=== PATIENT | male | born 1950 | race Caucasian/White ===

== ENCOUNTER 2019-05-30 15:50 | Inpatient (IN) | payer MEDICARE ==
[~2019-05-30] VITALS: Ht 170.2 cm; Wt 91.0 kg
[2019-05-30 18:13] LABS: HEMATOCRIT 44.9 % (42.0-52.0); HEMOGLOBIN 15.1 g/dl (13.5-18.0); MEAN CELL VOLUME 96 fl (80.0-100.0); MEAN CORPUSCULAR HEMOGLOBIN 32 pg (27.0-31.0); MEAN CORPUSCULAR HGB CONC 34 g/dl (33.0-37.0); MEAN PLATELET VOLUME 10.3 fl (7.4-10.4); PLATELET COUNT 273 K/mm3 (130-400); RED BLOOD COUNT 4.69 M/mm3 (4.20-5.60); REDCELL DISTRIBUTION WIDTH-CV 13.2 % (11.5-14.5)
[2019-05-30 18:26] LABS: ALANINE AMINOTRANSFERASE < 6 U/L (21-72); ALBUMIN 4.3 gm/dL (3.5-5.0); ALKALINE PHOSPHATASE 68 U/L (50-136); ANION GAP 20 mmol/L (7-16); AST,SGOT 27 U/L (15-37); BILIRUBIN,TOTAL 0.7 mg/dL (0.0-1.0); BLOOD UREA NITROGEN 76 mg/dL (9-20); CALCIUM 10.1 mg/dL (8.4-10.2); CARBON DIOXIDE 22 mmol/L (22-30); CHLORIDE 94 mmol/L (98-107); CREATINE KINASE 157 U/L (55-170); GLUCOSE 153 mg/dL (74-106); POTASSIUM 4.9 mmol/L (3.4-5.0); SODIUM 136 mmol/L (137-145); TOTAL PROTEIN 7.6 gm/dL (6.4-8.2)
[2019-05-30] MEDS ORDERED: ASPIRIN 32325 MG/TAB PO (18:29)
[2019-05-30] MEDS ORDERED: LIPITOR20 MG PO (18:29)
[2019-05-30 18:32] VITALS: BP 102/74; PULSE 85
[2019-05-30 18:35] LABS: TROPONIN-I 0.023 ng/mL (0.000-0.035)
[2019-05-30 18:36] LABS: C-REACTIVE PROTEIN < 0.5 mg/dL (0.0-0.9)
[2019-05-30] MEDS ORDERED: NEURONTIN300 MG/CAP PO (18:37)
[2019-05-30] MEDS ORDERED: GLUCOTROL 5M5 MG/TAB PO (18:42)
[2019-05-30] MEDS ORDERED: PRINIVIL20 MG PO (18:43)
[2019-05-30] MEDS ORDERED: HCTZ 25MG TAB25 MG PO (18:43)
[2019-05-30] MEDS ORDERED: MULTI VITAMINS1 TAB PO (18:44)
[2019-05-30] MEDS ORDERED: INDERAL LA120 MG PO (18:44)
[2019-05-30] MEDS ORDERED: GLUCOPHAGE XR500 M1 PO (18:44)
[2019-05-30] MEDS ORDERED: VIAGRA100 M1 (18:45)
[2019-05-30] MEDS ORDERED: RESTORIL 1515 MG/CAP PO (18:45)
[2019-05-30 18:51] LABS: EOSINOPHIL 1 % (0-4); LYMPHOCYTE 27 % (20.0-51.0); NEUTROPHILS 66 % (42.0-75.2); PLATELET ESTIMATE NORMAL (NORMAL)
[2019-05-30 19:27] LABS: COLLECTION METHOD CLEAN CATCH
[2019-05-30 19:40] LABS: MUCOUS Present /lpf; PH 5 (5-8); SQUAMOUS EPITHELIAL 0-2 /hpf; URINE APPEARANCE Hazy; URINE BACTERIA None Seen /hpf; URINE BILIRUBIN Negative (NEGATIVE); URINE BLOOD 1+ (NEGATIVE); URINE COLOR Yellow; URINE GLUCOSE Negative (NEGATIVE); URINE KETONE Trace (NEGATIVE); URINE LEUKOCYTE ESTERASE 1+ (NEGATIVE); URINE NITRATE Negative (NEGATIVE); URINE PROTEIN(semi-quant) 2+ (NEGATIVE); URINE UROBILINOGEN Negative (NEGATIVE)
[2019-05-30 21:21] VITALS: BP 117/59; PULSE 84; TEMP 97.7
--- NOTE | 2019-05-30 22:38 | NUR ---
PT ARRIVED FROM ER VIA WHEELCHAIR. PT ADVISES THAT HE IS USING A CANE BECAUSE HERE JUST RECENTLY STARTED FALLING. PT ADVISES NEVER FILLED THE VIAGRA 100MG AND DOES NOT WANT THAT MEDICATION. PT HAS CHRONIC BACK PAIN AND DOES NOT WANT TO TAKE MEDICATION FOR IT, BECAUSE HE HAS PAIN CONSTANTLY AND CAN DEAL WITH IT. PT WAS GIVEN A SANDWICH BOX AND A SPRITE ZERO. PT HAS NO FURTHER NEEDS AT THIS TIME, CALL LIGHT WITHIN REACH.
[2019-05-30 23:36] VITALS: BP 121/48; PULSE 93; TEMP 98.2
--- NOTE | 2019-05-31 00:53 | NUR ---
CALLED DR. SMITH IN REFERENCE TO PT'S BLOOD GLUCOSE LEVEL BEING 360. RECEIVED ORDERS FROM DR. SMITH TO CHANGE SLIDING SCALE TO ACHS AND TO PUT PT ON LOW DOSE SLIDING SCALE.
--- NOTE | 2019-05-31 03:00 | NUR ---
PT SLEEPING/RESTING IN BED WITH HOB AT 15 DEGREE ANGLE, WITH NO S/S OF PAIN OR DISCOMFORT NOTED. CALL LIGHT WITHIN REACH.
[2019-05-31 03:34] VITALS: BP 130/62; PULSE 74; TEMP 97.8
--- NOTE | 2019-05-31 07:27 | NUR ---
REPORT FROM CHARLI MEEKS.
[2019-05-31 07:29] LABS: BASO # 0.1 (0.0-0.2); BASO % 0.4 % (0.0-2.0); EOS # 0.2 (0.0-0.7); EOS % 1.6 % (0-4.0); GRAN # 8.7 (1.4-6.5); GRAN % 64.8 % (42.2-75.2); HEMATOCRIT 40.8 % (42.0-52.0); HEMOGLOBIN 13.5 g/dl (13.5-18.0); LYMPH # 3.1 (1.2-3.4); LYMPH % 22.9 % (20.0-51.0); MEAN CELL VOLUME 96 fl (80.0-100.0); MEAN CORPUSCULAR HEMOGLOBIN 32 pg (27.0-31.0); MEAN CORPUSCULAR HGB CONC 33 g/dl (33.0-37.0); MEAN PLATELET VOLUME 10.5 fl (7.4-10.4); MONO # 1.3 (0.1-0.6); MONO % 9.6 % (1.7-9.3); PLATELET COUNT 246 K/mm3 (130-400); RED BLOOD COUNT 4.24 M/mm3 (4.20-5.60); REDCELL DISTRIBUTION WIDTH-CV 12.9 % (11.5-14.5)
[2019-05-31 07:42] LABS: ALBUMIN 3.4 gm/dL (3.5-5.0); CALCIUM 8.4 mg/dL (8.4-10.2); PHOSPHOROUS 4.2 mg/dL (2.5-4.5); POTASSIUM 4.2 mmol/L (3.4-5.0)
[2019-05-31 07:47] LABS: CREATININE, serum 4.71 (0.66-1.25)
[2019-05-31 08:52] VITALS: BP 141/71; PULSE 83; TEMP 98.2
--- NOTE | 2019-05-31 10:30 | NUR ---
YUMIKO DYKES RN IN TO SEE PATIENT. SEE COMPUTER FOR ORDERS. PT INDEPENDENT IN ROOM.EATING AND DRINKING WITH NO N/V.
[2019-05-31 11:06] VITALS: BP 136/76; PULSE 84; TEMP 98.1
--- NOTE | 2019-05-31 13:54 | NUR ---
Report to Sarita MEEKS.
--- NOTE | 2019-05-31 14:23 | NUR ---
ABBEY met with the patient and patient's , Monica, to discuss discharge plan. The patient lives in [place] with his . He reports independence with ADLs and has a cane. The patient's PCP is Dr. Oral Martin and he receives his medications from the [facility]. He reports no difficulties obtaining his meds. The patient does not have advanced directives, but he was interested in obtaining a form for DPOA-HC. ABBEY provided. The patient plans to return home with his upon discharge. No additional needs at this time.
[2019-05-31] MEDS ORDERED: NEURONTIN300 MG/CAP PO (16:22)
[2019-05-31] MEDS ORDERED: LEVAQUIN 5500 MG/TA1 PO (16:24)
--- NOTE | 2019-05-31 16:45 | NUR ---
PT DISCHARGE INFORMATION PROVIDED TO PT, SIGNATURES OBTAINED. WALKED IN HALLWAY, PROVIDER WITNESS PT BALANCE AND STEADINESS. PT WAS ABLE TO WALK WITHOUT ISSUE. HAS SOME SLIGHT SHORTNESS OF BREATH AFTER WALKING BUT WAS MININMAL. NO C/O PAIN. PT WAS STEADY ON FEET. ATTEMPTED WALKER FIRST THEN TRIED HIS PERSONAL CANE. NO ISSUES WITH EITHER.
--- NOTE | 2019-05-31 17:08 | NUR ---
THIS NURSE ESCOTED PT OUT OF FACILITY VIA W/C. WAS ABLE TO GIVE PT RIDE HOME. NO ISSUES OR CONSERNS VOICED.
== END 2019-05-31 17:10 | disposition home or self-care (01) | DRG 872 ==
LOC: COL.ER 15:50 → MEDICAL 19:51
PROVIDERS: Emergency Medicine; ADMIT Internal Medicine Nephrology
DX: A41.9 Sepsis, unspecified organism (principal); N17.9 Acute kidney failure, unspecified; N39.0 Urinary tract infection, site not specified; E11.40 Type 2 diabetes mellitus with diabetic neuropathy, unspecified; M54.2 Cervicalgia; I10 Essential (primary) hypertension; Z79.82 Long term (current) use of aspirin; Z87.891 Personal history of nicotine dependence; Z79.84 Long term (current) use of oral hypoglycemic drugs
CPT/HCPCS: J0696; J1815; J7030

== ENCOUNTER 2024-04-02 17:29 | Emergency (ER) | payer MEDICARE ==
[~2024-04-02] VITALS: Ht 170.2 cm; Wt 79.5 kg
[~2024-04-02 17:29] MED LIST: ASPIRIN 32325 MG/TAB PO; GLUCOPHAGE XR500 M1 PO; GLUCOTROL 5M5 MG/TAB PO; HCTZ 25MG TAB25 MG PO; INDERAL LA120 MG PO; LEVAQUIN 5500 MG/TA1 PO; LIPITOR20 MG PO; MULTI VITAMINS1 TAB PO; NEURONTIN300 MG/CAP PO; PRINIVIL20 MG PO; RESTORIL 1515 MG/CAP PO; VIAGRA100 M1
[2024-04-02 17:46] VITALS: TEMP 97.8
[2024-04-02] MEDS ORDERED: Atropine 1 MG/10 ML SYRINGE IV ONE (18:15)
[2024-04-02 18:20] LABS: BASO # 0.1 K/mm3 (0.0-0.2); BASO % 0.4 % (0.0-2.0); EOS # 0.1 K/mm3 (0.0-0.7); EOS % 0.6 % (0.0-4.0); GRAN # 13.1 K/mm3 (1.4-6.5); GRAN % 74.3 % (42.2-75.2); HEMOGLOBIN 11.8 g/dl (13.5-18.0); LYMPH # 3.1 K/mm3 (1.2-3.4); LYMPH % 17.7 % (20.0-51.0); MEAN CELL VOLUME 97 fl (80.0-100.0); MEAN CORPUSCULAR HEMOGLOBIN 33 pg (27-31); MEAN CORPUSCULAR HGB CONC 34 g/dl (33.0-37.0); MEAN PLATELET VOLUME 11.9 fl (7.4-10.4); MONO # 1.1 K/mm3 (0.1-0.6); MONO % 6.3 % (1.7-9.3); PLATELET COUNT 235 K/mm3 (130-400); REDCELL DISTRIBUTION WIDTH-CV 13.2 % (11.5-14.5)
[2024-04-02 18:23] LABS: HEMATOCRIT 34.8 % (42.0-52.0)
[2024-04-02] MEDS ORDERED: fentaNYL 100 ML IV ONE (18:24)
[2024-04-02 18:27] LABS: INR 1.1 (0.8-3.0); PROTHROMBIN TIME 12.1 SECONDS (9.7-12.8)
[2024-04-02] MEDS ORDERED: NS 1,000 ML IV ONE (18:28)
[2024-04-02 18:30] LABS: PARTIAL THROMBOPLASTIN TIME 29.5 SECONDS (26.0-37.0)
[2024-04-02 18:43] LABS: ALANINE AMINOTRANSFERASE 59 U/L (0-55); ALBUMIN 3.8 g/dL (3.4-4.8); ALKALINE PHOSPHATASE 143 U/L (40-150); ANION GAP 14 mmol/L (7-16); AST,SGOT 30 U/L (5-34); BILIRUBIN,TOTAL 1.3 mg/dL (0.2-1.2); BLOOD UREA NITROGEN 31 mg/dL (8-26); CALCIUM 10.1 mg/dL (8.4-10.2); CHLORIDE 97 mEq/L (98-107); CREATININE, serum 1.64 mg/dL (0.72-1.25); GLUCOSE 221 mg/dL (70-99); MAGNESIUM 1.9 mg/dL (1.6-2.6); SODIUM 129 mEq/L (136-145); TOTAL PROTEIN 6.9 g/dl (6.2-8.1)
[2024-04-02 18:54] LABS: TROPONIN-I < 0.010 ng/mL (0.00-0.033)
[2024-04-02 18:55] LABS: POTASSIUM 5.9 mEq/L (3.5-4.5)
[2024-04-02] MEDS ORDERED: Insulin Regular Human (NovoLIN R/HumuLIN R) IV ONE (19:00)
[2024-04-02] MEDS ORDERED: Calcium Chloride 1,000 MG (13.6 mEq)/10 ML SYRINGE IV ONE (19:00)
[2024-04-02] MEDS ORDERED: Dextrose 50% Water 25 GM/50 ML SYRINGE IV ONE (19:00)
[2024-04-02] MEDS ORDERED: Sodium Bicarbonate 8.4% 50 MEQ/50 ML SYRINGE IV ONE (19:00)
[2024-04-02 19:53] VITALS: BP 197/83; PULSE 34
== END 2024-04-02 19:56 | disposition short-term general hospital (02) ==
LOC: COL.ER 17:29
PROVIDERS: Family Medicine
DX: I44.2 Atrioventricular block, complete (principal); E11.9 Type 2 diabetes mellitus without complications; I10 Essential (primary) hypertension; Z79.4 Long term (current) use of insulin
CPT/HCPCS: J0461; J1815; J3010; J7030; J7060